=== PATIENT | male | born 1995 | race Caucasian/White ===

== ENCOUNTER 2016-12-05 18:11 | Emergency (ER) | payer BC, OTHER ==
[~2016-12-05] VITALS: Ht 182.9 cm; Wt 86.2 kg
[2016-12-05] MEDS ORDERED: ONDANSETRON 4 MG ORAL DISINTEGRATING TAB (S0181) PO ONE (19:45)
[2016-12-05] MEDS ORDERED: IBUPROFEN 800 MG TAB PO ONE (19:45)
[2016-12-05] MEDS ORDERED: ACETAMINOPHEN 325 MG TAB PO ONE (19:45)
[2016-12-05] MEDS ORDERED: GI COCKTAIL 50ML BTL(HYOSCYAMINE/MAALOX/LIDOCAINE VISCOUS)(1:3:1) PO ONE (20:30)
[2016-12-05] MEDS ORDERED: AUGMENTIN 875 MG TAB PO ONE (20:45)
[2016-12-05] MEDS ORDERED: AUGM875T27 PO (21:14)
[2016-12-05] MEDS ORDERED: ZOFR4TAB3 PO (21:14)
[2016-12-05 21:20] VITALS: BP 137/83
--- NOTE | 2016-12-06 08:23 | REP ---
CHEST X-RAY: CLINICAL: Acute cough. TECHNIQUE: PA and lateral. COMPARISON: None. FINDINGS: Mediastinum and cardiac silhouette normal. Lung urbina clear. No focal consolidation, effusion or pneumothorax. Skeletal structures intact. IMPRESSION: Normal chest x-ray. No acute cardiopulmonary process or focal consolidation. Signed by Clark Orlando MD 12/10/2016 11:04 A
== END 2016-12-05 21:24 | disposition home or self-care (01) ==
LOC: M ED 19:50
DX: J02.0 Streptococcal pharyngitis (principal); K20.9 Esophagitis, unspecified; R11.2 Nausea with vomiting, unspecified; R09.89 Other specified symptoms and signs involving the circulatory and respiratory systems

== ENCOUNTER → 2018-04-20 | Outpatient (REF) | payer OTHER ==
[2018-04-20 16:31] LABS: CHLAMYDIA DNA AMPLIFICATION NEGATIVE (NEGATIVE); GC DNA AMPLIFICATION NEGATIVE (NEGATIVE)
== END ==
LOC: M LAB REF 13:18
DX: R30.0 Dysuria (principal)
CPT/HCPCS: 87086

== ENCOUNTER → 2018-10-01 | Outpatient (CLI) | payer BC, OTHER ==
[~2018-10-01] MED LIST: AUGM875T28 PO; ZOFR4TAB14 PO
--- NOTE | 2018-10-01 11:56 | REP ---
LEFT ANKLE, FOUR VIEWS: HISTORY: Pain. There is no acute fracture or dislocation. The joint space is normal in appearance. Soft tissue swelling is present over the lateral malleolus. IMPRESSION: There is no acute fracture or dislocation. Electronically Signed by Randy Cat MD 10/01/2018 12:01 P
== END ==
LOC: M ADAMS 11:06
PROVIDERS: ATTEND Physician Assistant
DX: M25.572 Pain in left ankle and joints of left foot (principal)

== ENCOUNTER → 2019-04-26 | Outpatient (CLI) | payer BC ==
--- NOTE | 2019-04-26 15:06 | REP ---
Clinical: Right wrist pain Technique: AP, lateral, bilateral oblique views right wrist . Findings: The carpal bones, surrounding osseous structures, soft tissues, and joint spaces are normal. There is no evidence for acute fracture or dislocation. No subcutaneous emphysema or radiodense foreign body. Impression: Normal wrist series. No acute fracture or dislocation Electronically Signed by Clark Orlando MD 04/26/2019 02:57 P
== END ==
LOC: M WUC 14:22
PROVIDERS: ATTEND Physician Assistant
DX: M25.531 Pain in right wrist (principal)

== ENCOUNTER → 2019-06-18 | Outpatient (CLI) | payer BC ==
--- NOTE | 2019-06-18 10:37 | REP ---
Right ankle four views: There are soft tissue edema laterally. Mineralization and joint spaces are normal. There is no fracture or dislocation. There are no calcifications or foreign bodies. Impression: Soft tissue edema laterally. No fracture. Electronically Signed by Josh Serna MD 06/18/2019 10:29 A
--- NOTE | 2019-06-18 11:14 | REP ---
Right foot four views : There is no fracture or dislocation. Mineralization and joint spaces are normal. There are no calcifications or foreign bodies. Impression: Negative right foot . Electronically Signed by Josh Serna MD 06/18/2019 11:06 A
== END ==
LOC: M WUC 09:58
PROVIDERS: ATTEND Nurse Practitioner Family
DX: M25.571 Pain in right ankle and joints of right foot (principal)

== ENCOUNTER → 2023-01-29 | Outpatient (CLI) | payer BC, OTHER | LOC: M RAD 12:54 | PROVIDERS: ATTEND Physician Assistant | DX: S49.91XA Unspecified injury of right shoulder and upper arm, initial encounter (principal); X58.XXXA Exposure to other specified factors, initial encounter; Y92.9 Unspecified place or not applicable; Y93.9 Activity, unspecified; Y99.9 Unspecified external cause status ==

== ENCOUNTER → 2024-09-05 | Outpatient (REF) | payer OTHER | LOC: M LAB REF 16:02 | PROVIDERS: ATTEND Physician Assistant | DX: B34.9 Viral infection, unspecified (principal) ==

== ENCOUNTER → 2024-11-01 | Outpatient (REF) | payer OTHER | LOC: M LAB REF 16:22 | PROVIDERS: ATTEND Physician Assistant | DX: J02.9 Acute pharyngitis, unspecified (principal) ==